=== PATIENT | male | born 1995 | race Caucasian/White ===

== ENCOUNTER 2017-11-27 05:48 | Emergency (ER) | payer BC ==
[2017-11-27] MEDS: ONDANSETRON 4 MG INJ IV (06:29)
[2017-11-27] MEDS: SOD CHLORIDE 0.9% 1,000 ML IV (06:29)
[2017-11-27 06:43] LABS: ADD MAN DIFF? NO
[2017-11-27 06:45] LABS: BASOPHIL # 0.1 10^3/ul (0.0-0.1); BASOPHILS % 0.5 % (0.0-2.0); EOSINOPHILS # 0.2 10^3/ul (0.0-0.5); EOSINOPHILS % 1.3 % (0.0-7.0); HEMATOCRIT 45.6 % (42.0-52.0); HEMOGLOBIN 16.3 g/dl (14.0-18.0); LYMPHOCYTES # 3.2 10^3/ul (0.8-2.9); LYMPHOCYTES % 26.6 % (15.0-51.0); MEAN CORPUSCULAR HEMOGLOBIN 29.9 pg (29.0-33.0); MEAN CORPUSCULAR HGB CONC 35.7 g/dl (32.0-37.0); MEAN CORPUSCULAR VOLUME 83.7 fl (82.0-101.0); MEAN PLATELET VOLUME 10.5 fl (7.4-10.4); MONOCYTE # 0.8 10^3/ul (0.3-0.9); MONOCYTES % 6.6 % (0.0-11.0); NEUTROPHIL # 7.6 10^3/ul (1.6-7.5); NEUTROPHILS % 62.5 % (39.0-77.0); PLATELET COUNT 289 10^3/UL (140-415); RED BLOOD COUNT 5.45 10^6/ul (4.70-6.10); RED CELL DISTRIBUTION WIDTH 11.9 % (11.5-14.5)
[2017-11-27 06:45] LABS: WHITE BLOOD COUNT 12.2 10^3/ul (4.8-10.8)
[2017-11-27 07:05] LABS: ALANINE AMINOTRANSFERASE 38 IU/L (13-69); ALBUMIN 4.1 g/dl (3.3-4.9); ALBUMIN/GLOBULIN RATIO 1.36; ALKALINE PHOSPHATASE 165 IU/L (42-121); ANION GAP 15 (8-16); ASPARTATE AMINO TRANSFERASE 23 IU/L (15-46); BILIRUBIN,INDIRECT 0.5 mg/dl (0-1.1); BILIRUBIN,TOTAL 0.5 mg/dl (0.2-1.3); BLOOD UREA NITROGEN 15 mg/dl (7-20); CALCIUM 9.4 mg/dl (8.4-10.2); CARBON DIOXIDE 27 mmol/L (21-31); CHLORIDE 101 mmol/L (97-110); CREATININE 0.66 mg/dl (0.61-1.24); GLUCOSE 318 mg/dl (70-220); LIPASE 52 U/L (23-300); POTASSIUM 3.7 mmol/L (3.5-5.1); SODIUM 139 mmol/L (135-144); TOTAL PROTEIN 7.1 g/dl (6.1-8.1)
[2017-11-27 07:10] LABS: ADD UMIC NO; UR ASCORBIC ACID NEGATIVE (NEGATIVE); UR BILIRUBIN (Dip) NEGATIVE (NEGATIVE); UR BLOOD (Dip) NEGATIVE (NEGATIVE); UR CLARITY CLEAR (CLEAR); UR COLOR YELLOW (YELLOW); UR GLUCOSE (Dip) 3+ mg/dL (NEGATIVE); UR KETONES (Dip) 1+ mg/dL (NEGATIVE); UR LEUKOCYTE ESTERASE (Dip) NEGATIVE Leu/ul (NEGATIVE); UR NITRITE (Dip) NEGATIVE (NEGATIVE); UR SPECIFIC GRAVITY (Dip) 1.027 (1.003-1.030); UR TOTAL PROTEIN (Dip) NEGATIVE (NEGATIVE); UR UROBILINOGEN (Dip) NEGATIVE (NEGATIVE)
== END 2017-11-27 08:14 | disposition home or self-care (01) ==
LOC: FTE 05:48
DX: J02.9 Acute pharyngitis, unspecified (principal); R09.89 Other specified symptoms and signs involving the circulatory and respiratory systems; R19.7 Diarrhea, unspecified; R11.0 Nausea; E11.9 Type 2 diabetes mellitus without complications
CPT/HCPCS: 36415; 71045; 80053; 81003; 82962; 83690; 85025; 87400; 87880; 96374; 99284-25

== ENCOUNTER 2018-01-23 23:12 | Inpatient (IN) | payer BC ==
[2018-01-24] MEDS: LIDOCAINE/MYLANTA 40 ML BTL PO (01:33)
[2018-01-24] MEDS: morphine 4 MG/ML VIAL IV (01:33)
[2018-01-24] MEDS: ONDANSETRON 4 MG INJ IV (01:33)
[2018-01-24] MEDS: BELLADONNA/PHENOBARBITAL TAB PO (01:33)
[2018-01-24] MEDS: SOD CHLORIDE 0.9% 1,000 ML IV (01:34)
[2018-01-24 01:45] LABS: ADD MAN DIFF? NO
[2018-01-24 01:47] LABS: WHITE BLOOD COUNT 13.7 10^3/ul (4.8-10.8)
[2018-01-24 01:47] LABS: BASOPHIL # 0.1 10^3/ul (0.0-0.1); BASOPHILS % 0.7 % (0.0-2.0); EOSINOPHILS # 0.1 10^3/ul (0.0-0.5); EOSINOPHILS % 0.6 % (0.0-7.0); HEMATOCRIT 48.4 % (42.0-52.0); HEMOGLOBIN 16.4 g/dl (14.0-18.0); LYMPHOCYTES # 2.3 10^3/ul (0.8-2.9); LYMPHOCYTES % 16.7 % (15.0-51.0); MEAN CORPUSCULAR HEMOGLOBIN 29.4 pg (29.0-33.0); MEAN CORPUSCULAR HGB CONC 33.9 g/dl (32.0-37.0); MEAN CORPUSCULAR VOLUME 86.9 fl (82.0-101.0); MEAN PLATELET VOLUME 11.3 fl (7.4-10.4); MONOCYTE # 0.8 10^3/ul (0.3-0.9); MONOCYTES % 5.7 % (0.0-11.0); NEUTROPHIL # 10.2 10^3/ul (1.6-7.5); NEUTROPHILS % 74.3 % (39.0-77.0); PLATELET COUNT 292 10^3/UL (140-415); RED BLOOD COUNT 5.57 10^6/ul (4.70-6.10); RED CELL DISTRIBUTION WIDTH 12.1 % (11.5-14.5)
[2018-01-24 01:54] LABS: ADD UMIC NO; UR ASCORBIC ACID NEGATIVE (NEGATIVE); UR BILIRUBIN (Dip) NEGATIVE (NEGATIVE); UR BLOOD (Dip) NEGATIVE (NEGATIVE); UR CLARITY CLEAR (CLEAR); UR COLOR YELLOW (YELLOW); UR GLUCOSE (Dip) 3+ mg/dL (NEGATIVE); UR KETONES (Dip) 1+ mg/dL (NEGATIVE); UR LEUKOCYTE ESTERASE (Dip) NEGATIVE Leu/ul (NEGATIVE); UR NITRITE (Dip) NEGATIVE (NEGATIVE); UR TOTAL PROTEIN (Dip) NEGATIVE (NEGATIVE); UR UROBILINOGEN (Dip) NEGATIVE (NEGATIVE)
[2018-01-24 02:06] LABS: ALANINE AMINOTRANSFERASE 38 IU/L (13-69); ALBUMIN 4.6 g/dl (3.3-4.9); ALKALINE PHOSPHATASE 156 IU/L (42-121); ANION GAP 23 (8-16); ASPARTATE AMINO TRANSFERASE 23 IU/L (15-46); BILIRUBIN,INDIRECT 0.7 mg/dl (0-1.1); BILIRUBIN,TOTAL 0.7 mg/dl (0.2-1.3); BLOOD UREA NITROGEN 12 mg/dl (7-20); CALCIUM 9.4 mg/dl (8.4-10.2); CARBON DIOXIDE 22 mmol/L (21-31); CHLORIDE 98 mmol/L (97-110); CREATININE 0.69 mg/dl (0.61-1.24); GLUCOSE 349 mg/dl (70-220); LIPASE 59 U/L (23-300); POTASSIUM 3.7 mmol/L (3.5-5.1); SODIUM 139 mmol/L (135-144); TOTAL PROTEIN 7.3 g/dl (6.1-8.1)
[2018-01-24] MEDS: INSULIN LISPRO 100 UNIT/ML VIAL SC (02:44)
[2018-01-24] MEDS: DIATR MEGLU/DIATRIZOATE SODIUM 30 ML SOLUTION PO (04:37)
[2018-01-24] MEDS: BARIUM SULFATE 135 ML (E-Z HD) PO (09:30)
[2018-01-24] MEDS ORDERED: ONDANSETRON 4 MG INJ IV (09:30)
[2018-01-24] MEDS ORDERED: GLUCOSE GEL 15 GRAM TUBE BUCCAL (10:00)
[2018-01-24] MEDS ORDERED: DEXTROSE 50% 50 ML SYRINGE IV ×2 (10:00)
[2018-01-24] MEDS ORDERED: GLUCOSE GEL 15 GRAM TUBE PO ×2 (10:00)
[2018-01-24] MEDS ORDERED: GLUCAGON 1 MG INJ IM (10:00)
[2018-01-24] MEDS ORDERED: INSULIN ASPART [NOVOLOG] 3 ML PEN SC ×2 (12:00→13:00)
[2018-01-24] MEDS: Insulin NOVOLOG SS MILD Algorithm (NPO/TPN/ENTERAL FEEDS) SC ×3 (12:00→21:10)
[2018-01-24] MEDS: 1/2 NS + KCL 20 MEQ 1,000 ML IV ×3 (12:19→23:03)
[2018-01-24] MEDS: PANTOPRAZOLE 40 MG INJ IV (12:27)
[2018-01-24] MEDS: morphine 2 MG INJ IV (12:56)
[2018-01-24] MEDS: METHYLPREDNISOLONE 40 MG INJ IV (13:12)
[2018-01-24] MEDS: URSODIOL 300 MG CAP PO ×2 (13:14→21:00)
[2018-01-24] MEDS: MYCOPHENOLATE 250 MG CAP PO (21:00)
[2018-01-24] MEDS: TACROLIMUS 0.5 MG CAP PO (21:00)
[2018-01-25] MEDS: Insulin NOVOLOG SS MILD Algorithm (NPO/TPN/ENTERAL FEEDS) SC ×4 (01:00→12:42)
[2018-01-25] MEDS: PANTOPRAZOLE 40 MG INJ IV (05:08)
[2018-01-25] MEDS: 1/2 NS + KCL 20 MEQ 1,000 ML IV ×3 (05:30→21:47)
[2018-01-25 05:38] LABS: ADD MAN DIFF? NO
[2018-01-25 06:05] LABS: WHITE BLOOD COUNT 11.4 10^3/ul (4.8-10.8)
[2018-01-25 06:05] LABS: BASOPHILS % 0.3 % (0.0-2.0); EOSINOPHILS # 0.1 10^3/ul (0.0-0.5); EOSINOPHILS % 0.7 % (0.0-7.0); HEMATOCRIT 41.9 % (42.0-52.0); HEMOGLOBIN 14.4 g/dl (14.0-18.0); LYMPHOCYTES # 3.1 10^3/ul (0.8-2.9); LYMPHOCYTES % 27.4 % (15.0-51.0); MEAN CORPUSCULAR HEMOGLOBIN 29.8 pg (29.0-33.0); MEAN CORPUSCULAR HGB CONC 34.4 g/dl (32.0-37.0); MEAN CORPUSCULAR VOLUME 86.7 fl (82.0-101.0); MEAN PLATELET VOLUME 10.9 fl (7.4-10.4); MONOCYTE # 0.8 10^3/ul (0.3-0.9); MONOCYTES % 7.1 % (0.0-11.0); NEUTROPHIL # 7.2 10^3/ul (1.6-7.5); NEUTROPHILS % 62.9 % (39.0-77.0); PLATELET COUNT 245 10^3/UL (140-415); RED BLOOD COUNT 4.83 10^6/ul (4.70-6.10); RED CELL DISTRIBUTION WIDTH 12.3 % (11.5-14.5)
[2018-01-25 06:23] LABS: ANION GAP 15 (8-16); BLOOD UREA NITROGEN 9 mg/dl (7-20); CALCIUM 8.8 mg/dl (8.4-10.2); CARBON DIOXIDE 25 mmol/L (21-31); CHLORIDE 107 mmol/L (97-110); CREATININE 0.59 mg/dl (0.61-1.24); GLUCOSE 126 mg/dl (70-220); SODIUM 143 mmol/L (135-144)
[2018-01-25 07:12] LABS: HEMOGLOBIN A1C 10.3 % (0-5.9)
[2018-01-25] MEDS ORDERED: predniSONE 2.5 MG TAB PO (09:00)
[2018-01-25] MEDS: URSODIOL 300 MG CAP PO ×3 (09:00→20:24)
[2018-01-25] MEDS: METHYLPREDNISOLONE 40 MG INJ IV (09:00)
[2018-01-25] MEDS: TACROLIMUS 0.5 MG CAP PO ×2 (12:42→20:24)
[2018-01-25] MEDS: MYCOPHENOLATE 250 MG CAP PO ×2 (12:44→20:25)
[2018-01-25] MEDS ORDERED: morphine LIQ (10 MG/5 ML) CUP PO (16:00)
[2018-01-25] MEDS: INSULIN ASPART [NOVOLOG] 3 ML PEN SC ×2 (17:51→21:43)
[2018-01-25] MEDS: INSULIN GLARGINE [LANtus] 3 ML PEN SC (21:46)
[2018-01-26] MEDS: 1/2 NS + KCL 20 MEQ 1,000 ML IV ×2 (01:30→09:00)
[2018-01-26 05:22] LABS: ADD MAN DIFF? NO
[2018-01-26] MEDS: PANTOPRAZOLE 40 MG INJ IV (05:26)
[2018-01-26 05:29] LABS: BASOPHIL # 0.1 10^3/ul (0.0-0.1); BASOPHILS % 0.6 % (0.0-2.0); EOSINOPHILS # 0.1 10^3/ul (0.0-0.5); EOSINOPHILS % 1.2 % (0.0-7.0); HEMATOCRIT 43.3 % (42.0-52.0); HEMOGLOBIN 14.4 g/dl (14.0-18.0); LYMPHOCYTES # 3.3 10^3/ul (0.8-2.9); LYMPHOCYTES % 35.6 % (15.0-51.0); MEAN CORPUSCULAR HEMOGLOBIN 29.3 pg (29.0-33.0); MEAN CORPUSCULAR HGB CONC 33.3 g/dl (32.0-37.0); MEAN PLATELET VOLUME 10.7 fl (7.4-10.4); MONOCYTE # 0.7 10^3/ul (0.3-0.9); MONOCYTES % 7.8 % (0.0-11.0); NEUTROPHIL # 4.9 10^3/ul (1.6-7.5); NEUTROPHILS % 52.7 % (39.0-77.0); PLATELET COUNT 245 10^3/UL (140-415); RED BLOOD COUNT 4.92 10^6/ul (4.70-6.10); RED CELL DISTRIBUTION WIDTH 12.1 % (11.5-14.5)
[2018-01-26 05:29] LABS: WHITE BLOOD COUNT 9.3 10^3/ul (4.8-10.8)
[2018-01-26 05:48] LABS: ANION GAP 16 (8-16); BLOOD UREA NITROGEN 10 mg/dl (7-20); CARBON DIOXIDE 25 mmol/L (21-31); CHLORIDE 104 mmol/L (97-110); GLUCOSE 199 mg/dl (70-220); POTASSIUM 4.2 mmol/L (3.5-5.1); SODIUM 141 mmol/L (135-144)
[2018-01-26] MEDS: TACROLIMUS 0.5 MG CAP PO ×2 (09:01→20:39)
[2018-01-26] MEDS: MYCOPHENOLATE 250 MG CAP PO ×2 (09:01→20:39)
[2018-01-26] MEDS: METHYLPREDNISOLONE 40 MG INJ IV (09:01)
[2018-01-26] MEDS: URSODIOL 300 MG CAP PO ×3 (09:01→20:40)
[2018-01-26] MEDS: INSULIN ASPART [NOVOLOG] 3 ML PEN SC ×6 (09:10→20:50)
[2018-01-26 13:34] LABS: GLUCOSE 562 mg/dl (70-220)
[2018-01-26] MEDS ORDERED: INSULIN GLARGINE [LANtus] 3 ML PEN SC ×2 (20:00→21:00)
[2018-01-26] MEDS: INSULIN GLARGINE [LANtus] 3 ML PEN SC (20:49)
[2018-01-27] MEDS: ACCU-CHEK XX (02:35)
[2018-01-27 05:38] LABS: ANION GAP 17 (8-16); BLOOD UREA NITROGEN 14 mg/dl (7-20); CALCIUM 9.5 mg/dl (8.4-10.2); CARBON DIOXIDE 23 mmol/L (21-31); CHLORIDE 104 mmol/L (97-110); CREATININE 0.63 mg/dl (0.61-1.24); GLUCOSE 252 mg/dl (70-220); POTASSIUM 3.9 mmol/L (3.5-5.1); SODIUM 140 mmol/L (135-144)
[2018-01-27] MEDS: PANTOPRAZOLE 40 MG INJ IV (05:54)
[2018-01-27] MEDS: predniSONE 2.5 MG TAB PO (08:32)
[2018-01-27] MEDS: URSODIOL 300 MG CAP PO ×3 (08:33→21:24)
[2018-01-27] MEDS: TACROLIMUS 0.5 MG CAP PO ×2 (08:33→21:24)
[2018-01-27] MEDS: MYCOPHENOLATE 250 MG CAP PO ×2 (08:34→21:27)
[2018-01-27] MEDS: INSULIN ASPART [NOVOLOG] 3 ML PEN SC ×7 (08:36→21:00)
[2018-01-27] MEDS ORDERED: INSULIN GLARGINE [LANtus] 3 ML PEN SC (21:00)
[2018-01-27] MEDS: INSULIN GLARGINE [LANtus] 3 ML PEN SC (21:34)
[2018-01-28] MEDS: ACCU-CHEK XX (02:00)
[2018-01-28] MEDS: PANTOPRAZOLE 40 MG INJ IV (05:37)
[2018-01-28 05:39] LABS: ADD MAN DIFF? NO
[2018-01-28 05:47] LABS: BASOPHIL # 0.1 10^3/ul (0.0-0.1); BASOPHILS % 0.7 % (0.0-2.0); EOSINOPHILS # 0.1 10^3/ul (0.0-0.5); EOSINOPHILS % 1.2 % (0.0-7.0); HEMATOCRIT 47.3 % (42.0-52.0); HEMOGLOBIN 16.2 g/dl (14.0-18.0); LYMPHOCYTES # 3.9 10^3/ul (0.8-2.9); LYMPHOCYTES % 32.6 % (15.0-51.0); MEAN CORPUSCULAR HEMOGLOBIN 29.7 pg (29.0-33.0); MEAN CORPUSCULAR HGB CONC 34.2 g/dl (32.0-37.0); MEAN CORPUSCULAR VOLUME 86.6 fl (82.0-101.0); MEAN PLATELET VOLUME 10.7 fl (7.4-10.4); MONOCYTE # 0.9 10^3/ul (0.3-0.9); MONOCYTES % 7.3 % (0.0-11.0); NEUTROPHIL # 6.7 10^3/ul (1.6-7.5); NEUTROPHILS % 56.3 % (39.0-77.0); PLATELET COUNT 261 10^3/UL (140-415); RED BLOOD COUNT 5.46 10^6/ul (4.70-6.10); RED CELL DISTRIBUTION WIDTH 12.2 % (11.5-14.5)
[2018-01-28 06:21] LABS: ANION GAP 16 (8-16); BLOOD UREA NITROGEN 15 mg/dl (7-20); CALCIUM 9.6 mg/dl (8.4-10.2); CARBON DIOXIDE 25 mmol/L (21-31); CHLORIDE 105 mmol/L (97-110); CREATININE 0.69 mg/dl (0.61-1.24); GLUCOSE 160 mg/dl (70-220); POTASSIUM 3.9 mmol/L (3.5-5.1); SODIUM 142 mmol/L (135-144)
[2018-01-28] MEDS: URSODIOL 300 MG CAP PO ×3 (09:27→21:13)
[2018-01-28] MEDS: MYCOPHENOLATE 250 MG CAP PO ×2 (09:29→21:17)
[2018-01-28] MEDS: TACROLIMUS 0.5 MG CAP PO ×2 (09:30→21:13)
[2018-01-28] MEDS: predniSONE 2.5 MG TAB PO (09:31)
[2018-01-28] MEDS: NPH, HUMAN INSULIN ISOPHANE 3ML VIAL SC (09:35)
[2018-01-28] MEDS: INSULIN ASPART [NOVOLOG] 3 ML PEN SC ×7 (09:37→21:00)
[2018-01-28] MEDS: INSULIN GLARGINE [LANtus] 3 ML PEN SC (21:21)
[2018-01-29] MEDS: ACCU-CHEK XX (02:00)
[2018-01-29] MEDS: PANTOPRAZOLE 40 MG INJ IV (05:27)
[2018-01-29] MEDS: INSULIN ASPART [NOVOLOG] 3 ML PEN SC ×4 (07:50→12:15)
[2018-01-29] MEDS: URSODIOL 300 MG CAP PO ×2 (08:09→12:08)
[2018-01-29] MEDS: TACROLIMUS 0.5 MG CAP PO (08:11)
[2018-01-29] MEDS: MYCOPHENOLATE 250 MG CAP PO (08:11)
[2018-01-29] MEDS: predniSONE 2.5 MG TAB PO (10:02)
[2018-01-29] MEDS: NPH, HUMAN INSULIN ISOPHANE 3ML VIAL SC (10:58)
[2018-01-29 12:26] LABS: ADD MAN DIFF? NO
[2018-01-29 12:42] LABS: BASOPHILS % 0.4 % (0.0-2.0); EOSINOPHILS # 0.1 10^3/ul (0.0-0.5); EOSINOPHILS % 1.1 % (0.0-7.0); HEMATOCRIT 48.5 % (42.0-52.0); HEMOGLOBIN 16.2 g/dl (14.0-18.0); LYMPHOCYTES # 3.8 10^3/ul (0.8-2.9); LYMPHOCYTES % 35.9 % (15.0-51.0); MEAN CORPUSCULAR HEMOGLOBIN 29.4 pg (29.0-33.0); MEAN CORPUSCULAR HGB CONC 33.4 g/dl (32.0-37.0); MONOCYTE # 0.8 10^3/ul (0.3-0.9); MONOCYTES % 7.3 % (0.0-11.0); NEUTROPHIL # 5.5 10^3/ul (1.6-7.5); NEUTROPHILS % 52.9 % (39.0-77.0); PLATELET COUNT 280 10^3/UL (140-415); RED BLOOD COUNT 5.51 10^6/ul (4.70-6.10); RED CELL DISTRIBUTION WIDTH 12.3 % (11.5-14.5)
[2018-01-29 12:42] LABS: WHITE BLOOD COUNT 10.4 10^3/ul (4.8-10.8)
[2018-01-29 12:48] LABS: ANION GAP 19 (8-16); BLOOD UREA NITROGEN 14 mg/dl (7-20); CALCIUM 9.6 mg/dl (8.4-10.2); CARBON DIOXIDE 27 mmol/L (21-31); CHLORIDE 98 mmol/L (97-110); CREATININE 0.75 mg/dl (0.61-1.24); GLUCOSE 224 mg/dl (70-220); POTASSIUM 4.1 mmol/L (3.5-5.1); SODIUM 140 mmol/L (135-144)
[2018-01-30] MEDS ORDERED: NPH, HUMAN INSULIN ISOPHANE 3ML VIAL SC (09:00)
[2018-02-02 00:36] LABS: GAD 65 ANTIBODY <5 IU/mL (<5)
== END 2018-01-29 15:04 | disposition home or self-care (01) | DRG 389 ==
LOC: E/R 23:12 → MS1 01-24 07:41
PROVIDERS: Internal Medicine
DX: K56.609 Unspecified intestinal obstruction, unspecified as to partial versus complete obstruction (principal); Z94.4 Liver transplant status; Q60.2 Renal agenesis, unspecified; E11.9 Type 2 diabetes mellitus without complications; Z79.4 Long term (current) use of insulin; Z98.0 Intestinal bypass and anastomosis status; K52.9 Noninfective gastroenteritis and colitis, unspecified
CPT/HCPCS: 36415; 74018; 74176; 74240; 74250; 80048; 80053; 81003; 82947; 82962; 83036; 83690; 84681; 85025; 86341; 96372; 96374; 96375; 99285-25

== ENCOUNTER 2018-06-19 09:14 | Emergency (ER) | payer BC ==
[2018-06-19] MEDS: ONDANSETRON 4 MG INJ IV (09:51)
[2018-06-19] MEDS: KETOROLAC 30 MG INJ IV (09:51)
[2018-06-19] MEDS: SOD CHLORIDE 0.9% 1,000 ML IV (09:51)
== END 2018-06-19 11:32 | disposition home or self-care (01) ==
LOC: FTE 09:14
DX: R51 Headache (principal); E11.9 Type 2 diabetes mellitus without complications; Z79.4 Long term (current) use of insulin
CPT/HCPCS: 96361; 96374; 96375; 99284-25

== ENCOUNTER 2018-06-22 02:02 | Emergency (ER) | payer BC ==
[2018-06-22] MEDS: SOD CHLORIDE 0.9% 1,000 ML IV (02:53)
[2018-06-22] MEDS: morphine 4 MG/ML VIAL IV (02:54)
[2018-06-22] MEDS: ONDANSETRON 4 MG INJ IV (02:54)
[2018-06-22] MEDS: KETOROLAC 15 MG INJ IV (02:54)
[2018-06-22 02:56] LABS: ADD MAN DIFF? NO
[2018-06-22 02:59] LABS: WHITE BLOOD COUNT 11.3 10^3/ul (4.8-10.8)
[2018-06-22 02:59] LABS: BASOPHILS % 0.4 % (0.0-2.0); EOSINOPHILS # 0.1 10^3/ul (0.0-0.5); EOSINOPHILS % 0.4 % (0.0-7.0); HEMATOCRIT 43.2 % (42.0-52.0); HEMOGLOBIN 15.1 g/dl (14.0-18.0); LYMPHOCYTES # 2.4 10^3/ul (0.8-2.9); MEAN CORPUSCULAR VOLUME 82.9 fl (82.0-101.0); MEAN PLATELET VOLUME 10.7 fl (7.4-10.4); MONOCYTE # 0.8 10^3/ul (0.3-0.9); MONOCYTES % 7.2 % (0.0-11.0); NEUTROPHIL # 7.7 10^3/ul (1.6-7.5); NEUTROPHILS % 68.8 % (39.0-77.0); PLATELET COUNT 247 10^3/UL (140-415); RED BLOOD COUNT 5.21 10^6/ul (4.70-6.10); RED CELL DISTRIBUTION WIDTH 11.9 % (11.5-14.5)
[2018-06-22 03:19] LABS: ADD UMIC NO; UR ASCORBIC ACID NEGATIVE (NEGATIVE); UR BILIRUBIN (Dip) NEGATIVE (NEGATIVE); UR BLOOD (Dip) NEGATIVE (NEGATIVE); UR CLARITY CLEAR (CLEAR); UR COLOR STRAW (YELLOW); UR GLUCOSE (Dip) 2+ mg/dL (NEGATIVE); UR KETONES (Dip) TRACE mg/dL (NEGATIVE); UR LEUKOCYTE ESTERASE (Dip) NEGATIVE Leu/ul (NEGATIVE); UR NITRITE (Dip) NEGATIVE (NEGATIVE); UR SPECIFIC GRAVITY (Dip) 1.008 (1.003-1.030); UR TOTAL PROTEIN (Dip) NEGATIVE (NEGATIVE); UR UROBILINOGEN (Dip) NEGATIVE (NEGATIVE)
[2018-06-22 03:21] LABS: ALANINE AMINOTRANSFERASE 94 IU/L (13-69); ALBUMIN 4.1 g/dl (3.3-4.9); ALBUMIN/GLOBULIN RATIO 1.32; ALKALINE PHOSPHATASE 184 IU/L (42-121); ANION GAP 18 (5-13); ASPARTATE AMINO TRANSFERASE 90 IU/L (15-46); BILIRUBIN,INDIRECT 0.7 mg/dl (0-1.1); BILIRUBIN,TOTAL 0.7 mg/dl (0.2-1.3); BLOOD UREA NITROGEN 14 mg/dl (7-20); CALCIUM 9.2 mg/dl (8.4-10.2); CARBON DIOXIDE 18 mmol/L (21-31); CHLORIDE 107 mmol/L (97-110); Estimated GFR > 60 mL/min (>60); GLUCOSE 152 mg/dl (70-220); LIPASE 136 U/L (23-300); POTASSIUM 3.5 mmol/L (3.5-5.1); SODIUM 143 mmol/L (135-144); TOTAL PROTEIN 7.2 g/dl (6.1-8.1)
== END 2018-06-22 05:20 | disposition home or self-care (01) ==
LOC: E/R 02:02
DX: M54.5 Low back pain (principal); D72.829 Elevated white blood cell count, unspecified; E87.2 Acidosis; E11.65 Type 2 diabetes mellitus with hyperglycemia; R74.0 Nonspecific elevation of levels of transaminase and lactic acid dehydrogenase [LDH]; Z79.4 Long term (current) use of insulin
CPT/HCPCS: 36415; 74176; 80053; 81003; 83690; 85025; 96374; 96375; 99285-25

== ENCOUNTER 2018-06-22 21:21 | Inpatient (IN) | payer BC ==
[2018-06-22] MEDS: IBUPROFEN 800 MG TAB PO (22:25)
[2018-06-22] MEDS: ACETAMINOPHEN 500 MG TAB PO (22:25)
[2018-06-22 22:40] LABS: ADD MAN DIFF? NO
[2018-06-22 22:42] LABS: BASOPHILS % 0.3 % (0.0-2.0); HEMATOCRIT 43.6 % (42.0-52.0); LYMPHOCYTES # 1.9 10^3/ul (0.8-2.9); LYMPHOCYTES % 15.9 % (15.0-51.0); MEAN CORPUSCULAR HEMOGLOBIN 29.1 pg (29.0-33.0); MEAN CORPUSCULAR HGB CONC 34.4 g/dl (32.0-37.0); MEAN CORPUSCULAR VOLUME 84.5 fl (82.0-101.0); MEAN PLATELET VOLUME 10.5 fl (7.4-10.4); MONOCYTE # 0.9 10^3/ul (0.3-0.9); MONOCYTES % 7.4 % (0.0-11.0); NEUTROPHIL # 8.8 10^3/ul (1.6-7.5); NEUTROPHILS % 74.5 % (39.0-77.0); PLATELET COUNT 234 10^3/UL (140-415); RED BLOOD COUNT 5.16 10^6/ul (4.70-6.10)
[2018-06-22 22:42] LABS: WHITE BLOOD COUNT 11.8 10^3/ul (4.8-10.8)
[2018-06-22 22:53] LABS: ADD UMIC NO; UR ASCORBIC ACID NEGATIVE (NEGATIVE); UR BILIRUBIN (Dip) NEGATIVE (NEGATIVE); UR BLOOD (Dip) NEGATIVE (NEGATIVE); UR CLARITY CLEAR (CLEAR); UR COLOR YELLOW (YELLOW); UR GLUCOSE (Dip) 3+ mg/dL (NEGATIVE); UR KETONES (Dip) 1+ mg/dL (NEGATIVE); UR LEUKOCYTE ESTERASE (Dip) NEGATIVE Leu/ul (NEGATIVE); UR NITRITE (Dip) NEGATIVE (NEGATIVE); UR SPECIFIC GRAVITY (Dip) 1.007 (1.003-1.030); UR TOTAL PROTEIN (Dip) NEGATIVE (NEGATIVE); UR UROBILINOGEN (Dip) NEGATIVE (NEGATIVE)
[2018-06-22 23:02] LABS: LACTIC ACID 1.7 mmol/L (0.5-2.0)
[2018-06-22 23:14] LABS: ALANINE AMINOTRANSFERASE 133 IU/L (13-69); ALBUMIN 3.8 g/dl (3.3-4.9); ALBUMIN/GLOBULIN RATIO 1.22; ALKALINE PHOSPHATASE 166 IU/L (42-121); AMYLASE 112 U/L (11-123); ANION GAP 15 (5-13); ASPARTATE AMINO TRANSFERASE 148 IU/L (15-46); BILIRUBIN,INDIRECT 1.1 mg/dl (0-1.1); BILIRUBIN,TOTAL 1.1 mg/dl (0.2-1.3); BLOOD UREA NITROGEN 14 mg/dl (7-20); CALCIUM 8.4 mg/dl (8.4-10.2); CARBON DIOXIDE 14 mmol/L (21-31); CHLORIDE 102 mmol/L (97-110); CREATININE 0.99 mg/dl (0.61-1.24); Estimated GFR > 60 mL/min (>60); GLUCOSE 260 mg/dl (70-220); LIPASE 24 U/L (23-300); SODIUM 131 mmol/L (135-144); TOTAL PROTEIN 6.9 g/dl (6.1-8.1)
[2018-06-22] MEDS ORDERED: POTASSIUM CHLORIDE 30 MEQ in SOD CHLORIDE 0.9% 1,000 ML IV (23:36)
[2018-06-22] MEDS ORDERED: SODIUM CHLORIDE 23.4% 77 MEQ in DEXTROSE 10% 1,000 ML IV (23:36)
[2018-06-22] MEDS ORDERED: SODIUM CHLORIDE 23.4% 77 MEQ, POTASSIUM CHLORIDE 30 MEQ in DEXTROSE 10% 1,000 ML IV (23:36)
[2018-06-22] MEDS ORDERED: SOD CHLORIDE 0.9% 1,000 ML IV (23:36)
[2018-06-22] MEDS ORDERED: SODIUM CHLORIDE 23.4% 77 MEQ, POTASSIUM CHLORIDE 40 MEQ in DEXTROSE 10% 1,000 ML IV (23:36)
[2018-06-22] MEDS ORDERED: POTASSIUM CHLORIDE 40 MEQ in SOD CHLORIDE 0.9% 1,000 ML IV (23:36)
[2018-06-22] MEDS: SOD CHLORIDE 0.9% 1,000 ML IV (23:44)
[2018-06-23] MEDS ORDERED: DEXTROSE 50% 50 ML SYRINGE IV ×2
[2018-06-23] MEDS ORDERED: INSULIN REGULAR, HUMAN 100 UNIT in SOD CHLORIDE 0.9% 99 ML IV
[2018-06-23 00:07] LABS: HEMOGLOBIN A1C 9.5 % (0-5.9)
[2018-06-23] MEDS: CEFTRIAXONE 1 GM/50 ML (PMX) 50 ML IVPB (00:27)
[2018-06-23] MEDS: LACTATED RINGER'S 860 ML IV (00:28)
[2018-06-23] MEDS ORDERED: ONDANSETRON 4 MG INJ IV (02:00)
[2018-06-23] MEDS ORDERED: ALBUTEROL/IPRATROPIUM (NEB) 3 ML AMP NEB (02:00)
[2018-06-23 02:07] LABS: MODE ROOM AIR; MetHgb Venous 0.4 %; Sample Type Blood venous; Site VENOUS LINE; Venous COHb 0.3 %; Venous Fraction OxyHgb 94.6 %; Venous Oxygen Sat 95.3 mmHG (55.0-75.0); Venous Total Hemglobin 14.3 g/dl
[2018-06-23 02:28] LABS: BLOOD UREA NITROGEN 15 mg/dl (7-20); CALCIUM 7.5 mg/dl (8.4-10.2); CARBON DIOXIDE 18 mmol/L (21-31); CHLORIDE 108 mmol/L (97-110); CREATININE 0.84 mg/dl (0.61-1.24); Estimated GFR > 60 mL/min (>60); GLUCOSE 236 mg/dl (70-220); PHOSPHORUS 4.2 mg/dl (2.5-4.9); POTASSIUM 3.8 mmol/L (3.5-5.1)
[2018-06-23 02:35] LABS: ANION GAP 10 (5-13); SODIUM 136 mmol/L (135-144)
[2018-06-23] MEDS: LEVOFLOXACIN 500MG/D5W (PMX) 100 ML IVPB (06:01)
[2018-06-23 06:58] LABS: ADD MAN DIFF? NO
[2018-06-23 07:05] LABS: BASOPHILS % 0.4 % (0.0-2.0); EOSINOPHILS % 0.1 % (0.0-7.0); HEMATOCRIT 41.7 % (42.0-52.0); HEMOGLOBIN 14.1 g/dl (14.0-18.0); LYMPHOCYTES # 1.9 10^3/ul (0.8-2.9); LYMPHOCYTES % 20.2 % (15.0-51.0); MEAN CORPUSCULAR HGB CONC 33.8 g/dl (32.0-37.0); MEAN CORPUSCULAR VOLUME 85.8 fl (82.0-101.0); MEAN PLATELET VOLUME 10.7 fl (7.4-10.4); MONOCYTE # 0.8 10^3/ul (0.3-0.9); MONOCYTES % 8.7 % (0.0-11.0); NEUTROPHIL # 6.6 10^3/ul (1.6-7.5); NEUTROPHILS % 68.7 % (39.0-77.0); PLATELET COUNT 193 10^3/UL (140-415); RED BLOOD COUNT 4.86 10^6/ul (4.70-6.10); RED CELL DISTRIBUTION WIDTH 12.3 % (11.5-14.5)
[2018-06-23 07:05] LABS: WHITE BLOOD COUNT 9.6 10^3/ul (4.8-10.8)
[2018-06-23 07:47] LABS: ALANINE AMINOTRANSFERASE 123 IU/L (13-69); ALBUMIN 3.3 g/dl (3.3-4.9); ALBUMIN/GLOBULIN RATIO 1.13; ALKALINE PHOSPHATASE 137 IU/L (42-121); ANION GAP 12 (5-13); ASPARTATE AMINO TRANSFERASE 116 IU/L (15-46); BILIRUBIN,INDIRECT 0.8 mg/dl (0-1.1); BILIRUBIN,TOTAL 0.8 mg/dl (0.2-1.3); BLOOD UREA NITROGEN 15 mg/dl (7-20); CARBON DIOXIDE 20 mmol/L (21-31); CHLORIDE 110 mmol/L (97-110); CREATININE 0.72 mg/dl (0.61-1.24); Estimated GFR > 60 mL/min (>60); GLUCOSE 213 mg/dl (70-220); POTASSIUM 4.1 mmol/L (3.5-5.1); SODIUM 142 mmol/L (135-144); TOTAL PROTEIN 6.2 g/dl (6.1-8.1)
[2018-06-23] MEDS ORDERED: HEPARIN 5,000 UNIT/0.5 ML VIAL ×2 (08:21→20:45)
[2018-06-23] MEDS: oxyCODONE 5 MG TAB PO ×3 (08:27→21:01)
[2018-06-23] MEDS: INSULIN ASPART [NOVOLOG] 3 ML PEN SC ×7 (08:33→21:00)
[2018-06-23] MEDS: INSULIN GLARGINE [LANTus] (100 UNITS/ML) SYG SC ×2 (08:34→16:14)
[2018-06-23] MEDS: HEPARIN 5,000 UNIT/1 ML VIAL SC ×2 (08:35→20:59)
[2018-06-23] MEDS: MAGNESIUM SULFATE 4 GM/100 ML 100 ML IVPB (09:18)
[2018-06-23] MEDS: morphine 2 MG INJ IV ×4 (09:18→23:56)
[2018-06-23] MEDS ORDERED: MAGNESIUM SULFATE 2 GM/50 ML 50 ML IVPB (12:30)
[2018-06-23] MEDS: CEPASTAT LOZENGE MT ×2 (12:35→19:21)
[2018-06-23] MEDS: PANTOPRAZOLE (EC) 40 MG TAB PO (13:07)
[2018-06-23] MEDS: ACETAMINOPHEN 325 MG TAB PO (13:27)
[2018-06-23 14:46] LABS: ADD UMIC YES; UR ASCORBIC ACID NEGATIVE (NEGATIVE); UR BILIRUBIN (Dip) NEGATIVE (NEGATIVE); UR BLOOD (Dip) 1+ mg/dL (NEGATIVE); UR CLARITY CLEAR (CLEAR); UR COLOR STRAW (YELLOW); UR GLUCOSE (Dip) 2+ mg/dL (NEGATIVE); UR KETONES (Dip) 1+ mg/dL (NEGATIVE); UR LEUKOCYTE ESTERASE (Dip) NEGATIVE Leu/ul (NEGATIVE); UR NITRITE (Dip) NEGATIVE (NEGATIVE); UR RBC 0 /HPF (0-5); UR SPECIFIC GRAVITY (Dip) 1.009 (1.003-1.030); UR TOTAL PROTEIN (Dip) NEGATIVE (NEGATIVE); UR UROBILINOGEN (Dip) NEGATIVE (NEGATIVE); UR WBC 0 /HPF (0-5)
[2018-06-23] MEDS: LINAGLIPTIN 5 MG TABLET PO (16:10)
[2018-06-23] MEDS: HYDROCORTISONE 100 MG INJ IV ×2 (16:14→21:11)
[2018-06-24] MEDS: ACCU-CHEK XX (02:00)
[2018-06-24] MEDS: CEPASTAT LOZENGE MT ×4 (02:44→19:51)
[2018-06-24] MEDS: oxyCODONE 5 MG TAB PO ×2 (04:10→22:58)
[2018-06-24] MEDS: SOD CHLORIDE 0.9% IVPB ×3 (06:02→21:19)
[2018-06-24] MEDS: ACYCLOVIR IVPB ×3 (06:02→21:19)
[2018-06-24] MEDS: PANTOPRAZOLE (EC) 40 MG TAB PO (06:02)
[2018-06-24] MEDS: HYDROCORTISONE 100 MG INJ IV ×2 (06:14→15:11)
[2018-06-24] MEDS: morphine 2 MG INJ IV ×3 (06:22→19:51)
[2018-06-24 07:05] LABS: LACTIC ACID 1.1 mmol/L (0.5-2.0)
[2018-06-24 07:17] LABS: ANION GAP 13 (5-13); BLOOD UREA NITROGEN 17 mg/dl (7-20); CALCIUM 8.6 mg/dl (8.4-10.2); CARBON DIOXIDE 22 mmol/L (21-31); CHLORIDE 101 mmol/L (97-110); CREATININE 0.71 mg/dl (0.61-1.24); Estimated GFR > 60 mL/min (>60); GLUCOSE 187 mg/dl (70-220); MAGNESIUM 1.5 mg/dl (1.7-2.5); POTASSIUM 3.9 mmol/L (3.5-5.1); SODIUM 136 mmol/L (135-144)
[2018-06-24] MEDS ORDERED: SOD CHLORIDE 0.9% IVPB ×2 (07:30→21:00)
[2018-06-24] MEDS ORDERED: ACYCLOVIR IVPB ×2 (07:30→21:00)
[2018-06-24] MEDS ORDERED: HEPARIN 5,000 UNIT/0.5 ML VIAL ×2 (07:48→20:13)
[2018-06-24] MEDS: INSULIN ASPART [NOVOLOG] 3 ML PEN SC ×7 (08:14→21:12)
[2018-06-24] MEDS: LEVOFLOXACIN 500MG/D5W (PMX) 100 ML IVPB (08:16)
[2018-06-24] MEDS: INSULIN GLARGINE [LANTus] (100 UNITS/ML) SYG SC (08:16)
[2018-06-24] MEDS: HEPARIN 5,000 UNIT/1 ML VIAL SC ×2 (08:17→21:12)
[2018-06-24 08:19] LABS: ADD MAN DIFF? NO
[2018-06-24 08:27] LABS: WHITE BLOOD COUNT 8.7 10^3/ul (4.8-10.8)
[2018-06-24 08:27] LABS: BASOPHILS % 0.3 % (0.0-2.0); EOSINOPHILS % 0.1 % (0.0-7.0); HEMATOCRIT 42.5 % (42.0-52.0); HEMOGLOBIN 14.3 g/dl (14.0-18.0); LYMPHOCYTES # 1.4 10^3/ul (0.8-2.9); MEAN CORPUSCULAR HEMOGLOBIN 28.8 pg (29.0-33.0); MEAN CORPUSCULAR HGB CONC 33.6 g/dl (32.0-37.0); MEAN CORPUSCULAR VOLUME 85.7 fl (82.0-101.0); MONOCYTE # 0.6 10^3/ul (0.3-0.9); MONOCYTES % 7.1 % (0.0-11.0); NEUTROPHIL # 6.5 10^3/ul (1.6-7.5); NEUTROPHILS % 74.6 % (39.0-77.0); PLATELET COUNT 212 10^3/UL (140-415); RED BLOOD COUNT 4.96 10^6/ul (4.70-6.10)
[2018-06-24] MEDS: hydrOXYzine HCL 25 MG TAB PO ×2 (11:05→21:15)
[2018-06-24] MEDS: GABAPENTIN 100 MG CAP PO ×2 (11:05→21:14)
[2018-06-24] MEDS ORDERED: TACROLIMUS 1 MG CAP PO (11:30)
[2018-06-24] MEDS: URSODIOL 300 MG CAP PO ×2 (11:51→21:14)
[2018-06-24] MEDS: MYCOPHENOLATE MOFETIL 500 MG TABLET PO ×2 (11:51→21:18)
[2018-06-24] MEDS: TACROLIMUS 1 MG CAP PO ×2 (11:57→21:14)
[2018-06-24] MEDS: CYCLOBENZAPRINE 10 MG TAB PO (12:54)
[2018-06-24] MEDS ORDERED: URSODIOL 300 MG CAP PO (13:00)
[2018-06-24] MEDS: MAGNESIUM SULFATE 3 GM in DEXTROSE 5% 100 ML IVPB (14:21)
[2018-06-24] MEDS: ACETAMINOPHEN 325 MG TAB PO (16:21)
[2018-06-24] MEDS ORDERED: [UNRECOGNIZED DRUG - REMARK] XX (17:00)
[2018-06-24 18:52] LABS: HIV 1&2 ANTIBODY NEGATIVE (NEGATIVE)
[2018-06-24] MEDS ORDERED: SPECIAL NON-STANDARD MEDICATION PO (21:00)
[2018-06-24] MEDS: MAGNESIUM PLUS PROTEIN PO (21:15)
[2018-06-25] MEDS: ACCU-CHEK XX (02:14)
[2018-06-25] MEDS: morphine 2 MG INJ IV ×3 (02:41→11:51)
[2018-06-25] MEDS: CEPASTAT LOZENGE MT (02:48)
[2018-06-25] MEDS: SOD CHLORIDE 0.9% 1,000 ML IV (04:24)
[2018-06-25] MEDS: INSULIN ASPART [NOVOLOG] 3 ML PEN SC ×8 (05:26→20:59)
[2018-06-25] MEDS: PANTOPRAZOLE (EC) 40 MG TAB PO (06:00)
[2018-06-25] MEDS: SOD CHLORIDE 0.9% IVPB ×3 (06:04→21:03)
[2018-06-25] MEDS: ACYCLOVIR IVPB ×3 (06:04→21:03)
[2018-06-25 06:29] LABS: ADD MAN DIFF? NO
[2018-06-25 06:41] LABS: WHITE BLOOD COUNT 7.5 10^3/ul (4.8-10.8)
[2018-06-25 06:41] LABS: BASOPHIL # 0.1 10^3/ul (0.0-0.1); BASOPHILS % 0.7 % (0.0-2.0); EOSINOPHILS % 0.5 % (0.0-7.0); HEMOGLOBIN 15.3 g/dl (14.0-18.0); LYMPHOCYTES # 1.6 10^3/ul (0.8-2.9); LYMPHOCYTES % 21.9 % (15.0-51.0); MEAN CORPUSCULAR HEMOGLOBIN 29.3 pg (29.0-33.0); MEAN CORPUSCULAR HGB CONC 34.8 g/dl (32.0-37.0); MEAN CORPUSCULAR VOLUME 84.1 fl (82.0-101.0); MEAN PLATELET VOLUME 10.3 fl (7.4-10.4); MONOCYTE # 0.4 10^3/ul (0.3-0.9); MONOCYTES % 5.6 % (0.0-11.0); NEUTROPHIL # 5.1 10^3/ul (1.6-7.5); PLATELET COUNT 221 10^3/UL (140-415); RED BLOOD COUNT 5.23 10^6/ul (4.70-6.10); RED CELL DISTRIBUTION WIDTH 11.9 % (11.5-14.5)
[2018-06-25 06:54] LABS: MAGNESIUM 1.8 mg/dl (1.7-2.5)
[2018-06-25 07:00] LABS: ANION GAP 12 (5-13); BLOOD UREA NITROGEN 17 mg/dl (7-20); CALCIUM 8.6 mg/dl (8.4-10.2); CARBON DIOXIDE 24 mmol/L (21-31); CHLORIDE 104 mmol/L (97-110); CREATININE 0.81 mg/dl (0.61-1.24); Estimated GFR > 60 mL/min (>60); GLUCOSE 180 mg/dl (70-220); POTASSIUM 3.7 mmol/L (3.5-5.1); SODIUM 140 mmol/L (135-144)
[2018-06-25] MEDS ORDERED: HEPARIN 5,000 UNIT/0.5 ML VIAL ×2 (09:32→20:39)
[2018-06-25] MEDS: URSODIOL 300 MG CAP PO ×2 (09:36→22:26)
[2018-06-25] MEDS: hydrOXYzine HCL 25 MG TAB PO ×3 (09:37→21:02)
[2018-06-25] MEDS: MYCOPHENOLATE MOFETIL 500 MG TABLET PO ×2 (09:37→21:02)
[2018-06-25] MEDS: GABAPENTIN 100 MG CAP PO ×3 (09:37→21:01)
[2018-06-25] MEDS: TACROLIMUS 1 MG CAP PO ×2 (09:37→21:02)
[2018-06-25] MEDS: HEPARIN 5,000 UNIT/1 ML VIAL SC ×2 (09:38→21:00)
[2018-06-25 09:39] LABS: ALANINE AMINOTRANSFERASE 155 IU/L (13-69); ALBUMIN 3.7 g/dl (3.3-4.9); ALKALINE PHOSPHATASE 131 IU/L (42-121); ASPARTATE AMINO TRANSFERASE 149 IU/L (15-46); BILIRUBIN,INDIRECT 0.3 mg/dl (0-1.1); BILIRUBIN,TOTAL 0.3 mg/dl (0.2-1.3); TOTAL PROTEIN 6.2 g/dl (6.1-8.1)
[2018-06-25] MEDS: INSULIN GLARGINE [LANTus] (100 UNITS/ML) SYG SC (09:39)
[2018-06-25] MEDS: POLYETHYLENE GLYCOL 17 GM PACKET PO (09:48)
[2018-06-25] MEDS: ACETAMINOPHEN 325 MG TAB PO ×2 (09:49→17:54)
[2018-06-25] MEDS: LUBIPROSTONE 24 MCG CAP PO ×2 (11:51→22:26)
[2018-06-25] MEDS: MAGNESIUM PLUS PROTEIN PO (21:06)
[2018-06-26] MEDS: ACETAMINOPHEN 325 MG TAB PO (01:28)
[2018-06-26] MEDS: ACCU-CHEK XX (01:29)
[2018-06-26] MEDS: morphine 2 MG INJ IV ×2 (03:19→18:13)
[2018-06-26] MEDS: ACYCLOVIR IVPB ×3 (05:27→21:59)
[2018-06-26] MEDS: PANTOPRAZOLE (EC) 40 MG TAB PO (05:27)
[2018-06-26] MEDS: SOD CHLORIDE 0.9% IVPB ×3 (05:27→21:59)
[2018-06-26] MEDS: oxyCODONE 5 MG TAB PO ×3 (05:27→22:17)
[2018-06-26 06:16] LABS: ADD MAN DIFF? NO
[2018-06-26 06:19] LABS: WHITE BLOOD COUNT 6.2 10^3/ul (4.8-10.8)
[2018-06-26 06:19] LABS: BASOPHILS % 0.5 % (0.0-2.0); EOSINOPHILS % 0.2 % (0.0-7.0); HEMATOCRIT 43.5 % (42.0-52.0); HEMOGLOBIN 15.2 g/dl (14.0-18.0); LYMPHOCYTES # 1.9 10^3/ul (0.8-2.9); LYMPHOCYTES % 30.6 % (15.0-51.0); MEAN CORPUSCULAR HEMOGLOBIN 29.2 pg (29.0-33.0); MEAN CORPUSCULAR HGB CONC 34.9 g/dl (32.0-37.0); MEAN CORPUSCULAR VOLUME 83.7 fl (82.0-101.0); MEAN PLATELET VOLUME 10.1 fl (7.4-10.4); MONOCYTE # 0.5 10^3/ul (0.3-0.9); MONOCYTES % 7.2 % (0.0-11.0); NEUTROPHIL # 3.6 10^3/ul (1.6-7.5); NEUTROPHILS % 57.5 % (39.0-77.0); PLATELET COUNT 204 10^3/UL (140-415)
[2018-06-26 07:07] LABS: GLUCOSE 179 mg/dl (70-220)
[2018-06-26 07:12] LABS: ANION GAP 13 (5-13); BLOOD UREA NITROGEN 10 mg/dl (7-20); CALCIUM 8.4 mg/dl (8.4-10.2); CARBON DIOXIDE 24 mmol/L (21-31); CHLORIDE 100 mmol/L (97-110); CREATININE 0.69 mg/dl (0.61-1.24); Estimated GFR > 60 mL/min (>60); POTASSIUM 3.7 mmol/L (3.5-5.1); SODIUM 137 mmol/L (135-144)
[2018-06-26] MEDS: INSULIN GLARGINE [LANTus] (100 UNITS/ML) SYG SC (08:09)
[2018-06-26] MEDS: BISACODYL (EC) 5 MG TAB PO (08:10)
[2018-06-26] MEDS: INSULIN ASPART [NOVOLOG] 3 ML PEN SC ×7 (08:10→20:59)
[2018-06-26] MEDS ORDERED: HEPARIN 5,000 UNIT/0.5 ML VIAL ×2 (08:17→19:52)
[2018-06-26] MEDS: POLYETHYLENE GLYCOL 17 GM PACKET PO (08:18)
[2018-06-26] MEDS: URSODIOL 300 MG CAP PO ×2 (08:19→20:53)
[2018-06-26] MEDS: hydrOXYzine HCL 25 MG TAB PO ×3 (08:19→20:53)
[2018-06-26] MEDS: GABAPENTIN 100 MG CAP PO ×3 (08:19→20:53)
[2018-06-26] MEDS: TACROLIMUS 1 MG CAP PO ×2 (08:19→20:53)
[2018-06-26] MEDS: MYCOPHENOLATE MOFETIL 500 MG TABLET PO ×2 (08:19→20:53)
[2018-06-26] MEDS: HEPARIN 5,000 UNIT/1 ML VIAL SC ×2 (08:21→20:59)
[2018-06-26] MEDS: LUBIPROSTONE 24 MCG CAP PO ×2 (10:05→20:53)
[2018-06-26] MEDS: CEPASTAT LOZENGE MT (10:14)
[2018-06-26] MEDS: MAGNESIUM PLUS PROTEIN PO (20:54)
[2018-06-27] MEDS: ACCU-CHEK XX (02:00)
[2018-06-27] MEDS: SOD CHLORIDE 0.9% IVPB ×3 (05:38→21:11)
[2018-06-27] MEDS: ACYCLOVIR IVPB ×3 (05:38→21:11)
[2018-06-27] MEDS: PANTOPRAZOLE (EC) 40 MG TAB PO (05:38)
[2018-06-27] MEDS: ACETAMINOPHEN 325 MG TAB PO (05:39)
[2018-06-27 06:47] LABS: ADD MAN DIFF? NO
[2018-06-27 06:53] LABS: BASOPHIL # 0.1 10^3/ul (0.0-0.1); BASOPHILS % 0.8 % (0.0-2.0); EOSINOPHILS # 0.1 10^3/ul (0.0-0.5); EOSINOPHILS % 1.5 % (0.0-7.0); HEMATOCRIT 41.4 % (42.0-52.0); HEMOGLOBIN 14.1 g/dl (14.0-18.0); LYMPHOCYTES # 1.9 10^3/ul (0.8-2.9); MEAN CORPUSCULAR HEMOGLOBIN 28.9 pg (29.0-33.0); MEAN CORPUSCULAR HGB CONC 34.1 g/dl (32.0-37.0); MEAN CORPUSCULAR VOLUME 84.8 fl (82.0-101.0); MEAN PLATELET VOLUME 10.1 fl (7.4-10.4); MONOCYTE # 0.6 10^3/ul (0.3-0.9); MONOCYTES % 7.9 % (0.0-11.0); NEUTROPHIL # 4.8 10^3/ul (1.6-7.5); NEUTROPHILS % 61.4 % (39.0-77.0); PLATELET COUNT 186 10^3/UL (140-415); RED BLOOD COUNT 4.88 10^6/ul (4.70-6.10); RED CELL DISTRIBUTION WIDTH 11.9 % (11.5-14.5)
[2018-06-27 06:53] LABS: WHITE BLOOD COUNT 7.8 10^3/ul (4.8-10.8)
[2018-06-27 07:08] LABS: ANION GAP 12 (5-13); BLOOD UREA NITROGEN 10 mg/dl (7-20); CALCIUM 8.5 mg/dl (8.4-10.2); CARBON DIOXIDE 28 mmol/L (21-31); CHLORIDE 96 mmol/L (97-110); CREATININE 0.68 mg/dl (0.61-1.24); Estimated GFR > 60 mL/min (>60); GLUCOSE 166 mg/dl (70-220); POTASSIUM 3.7 mmol/L (3.5-5.1); SODIUM 136 mmol/L (135-144)
[2018-06-27] MEDS ORDERED: HEPARIN 5,000 UNIT/0.5 ML VIAL ×2 (07:59→20:53)
[2018-06-27] MEDS: HEPARIN 5,000 UNIT/1 ML VIAL SC ×2 (08:26→21:19)
[2018-06-27] MEDS: INSULIN GLARGINE [LANTus] (100 UNITS/ML) SYG SC (08:27)
[2018-06-27] MEDS: INSULIN ASPART [NOVOLOG] 3 ML PEN SC ×7 (08:28→21:24)
[2018-06-27] MEDS: POLYETHYLENE GLYCOL 17 GM PACKET PO (08:29)
[2018-06-27] MEDS: TACROLIMUS 1 MG CAP PO ×2 (08:29→21:12)
[2018-06-27] MEDS: LUBIPROSTONE 24 MCG CAP PO ×2 (08:29→21:12)
[2018-06-27] MEDS: URSODIOL 300 MG CAP PO ×2 (08:30→21:12)
[2018-06-27] MEDS: MYCOPHENOLATE MOFETIL 500 MG TABLET PO ×2 (08:30→21:12)
[2018-06-27] MEDS: GABAPENTIN 100 MG CAP PO ×3 (08:30→21:12)
[2018-06-27] MEDS: hydrOXYzine HCL 25 MG TAB PO ×3 (08:30→21:12)
[2018-06-27 08:35] LABS: HAAIG REFLEX REFLEX FILED
[2018-06-27 09:12] LABS: HEPATITIS B SURFACE ANTIGEN NEGATIVE (NEGATIVE)
[2018-06-27 09:30] LABS: HEPATITIS B CORE ANTIBODY NEGATIVE (NEGATIVE); HEPATITIS C VIRAL ANTIBODY NEGATIVE (NEGATIVE)
[2018-06-27 11:41] LABS: VARICELLA-ZOSTER VIRUS AB IgG <135.00 INDEX (<= 0.90)
[2018-06-27] MEDS: morphine 2 MG INJ IV ×2 (17:50→21:48)
[2018-06-27] MEDS: MAGNESIUM PLUS PROTEIN PO ×2 (21:00→22:36)
[2018-06-27 23:27] LABS: VARICELLA-ZOSTER VIRUS AB IgM 0.61
[2018-06-28] MEDS: ACCU-CHEK XX (02:07)
[2018-06-28] MEDS: SOD CHLORIDE 0.9% IVPB ×3 (06:04→22:05)
[2018-06-28] MEDS: ACYCLOVIR IVPB ×3 (06:04→22:05)
[2018-06-28] MEDS: PANTOPRAZOLE (EC) 40 MG TAB PO (06:05)
[2018-06-28 06:43] LABS: ALANINE AMINOTRANSFERASE 108 IU/L (13-69); ALBUMIN 3.2 g/dl (3.3-4.9); ALKALINE PHOSPHATASE 136 IU/L (42-121); ASPARTATE AMINO TRANSFERASE 58 IU/L (15-46); BILIRUBIN,INDIRECT 0.3 mg/dl (0-1.1); BILIRUBIN,TOTAL 0.3 mg/dl (0.2-1.3); TOTAL PROTEIN 5.6 g/dl (6.1-8.1)
[2018-06-28] MEDS ORDERED: HEPARIN 5,000 UNIT/0.5 ML VIAL ×3 (08:10→20:29)
[2018-06-28] MEDS: GABAPENTIN 100 MG CAP PO ×3 (08:13→20:35)
[2018-06-28] MEDS: LUBIPROSTONE 24 MCG CAP PO ×2 (08:13→20:36)
[2018-06-28] MEDS: MYCOPHENOLATE MOFETIL 500 MG TABLET PO ×2 (08:13→20:35)
[2018-06-28] MEDS: POLYETHYLENE GLYCOL 17 GM PACKET PO (08:13)
[2018-06-28] MEDS: URSODIOL 300 MG CAP PO ×2 (08:14→20:41)
[2018-06-28] MEDS: hydrOXYzine HCL 25 MG TAB PO ×3 (08:14→20:34)
[2018-06-28] MEDS: TACROLIMUS 1 MG CAP PO ×2 (08:14→20:35)
[2018-06-28] MEDS: INSULIN ASPART [NOVOLOG] 3 ML PEN SC ×7 (08:15→20:50)
[2018-06-28] MEDS: HEPARIN 5,000 UNIT/1 ML VIAL SC ×2 (08:17→20:40)
[2018-06-28] MEDS: INSULIN GLARGINE [LANTus] (100 UNITS/ML) SYG SC (08:22)
[2018-06-28] MEDS: ACETAMINOPHEN 325 MG TAB PO (12:58)
[2018-06-28] MEDS: MAGNESIUM PLUS PROTEIN PO (20:35)
[2018-06-28] MEDS: morphine 2 MG INJ IV (22:28)
[2018-06-29] MEDS: ACCU-CHEK XX (02:00)
[2018-06-29] MEDS: ACYCLOVIR IVPB ×3 (06:22→21:31)
[2018-06-29] MEDS: SOD CHLORIDE 0.9% IVPB ×3 (06:22→21:31)
[2018-06-29] MEDS: PANTOPRAZOLE (EC) 40 MG TAB PO (06:22)
[2018-06-29 06:36] LABS: ABNORMAL IP MESSAGE 1; HEMATOCRIT 41.1 % (42.0-52.0); HEMOGLOBIN 14.1 g/dl (14.0-18.0); MEAN CORPUSCULAR HEMOGLOBIN 28.8 pg (29.0-33.0); MEAN CORPUSCULAR HGB CONC 34.3 g/dl (32.0-37.0); MEAN CORPUSCULAR VOLUME 83.9 fl (82.0-101.0); PLATELET COUNT 252 10^3/UL (140-415); POSITIVE DIFF @See below
[2018-06-29 06:36] LABS: WHITE BLOOD COUNT 7.4 10^3/ul (4.8-10.8)
[2018-06-29 06:39] LABS: ADD MAN DIFF? YES
[2018-06-29 07:23] LABS: ANION GAP 12 (5-13); BLOOD UREA NITROGEN 9 mg/dl (7-20); CALCIUM 8.9 mg/dl (8.4-10.2); CARBON DIOXIDE 24 mmol/L (21-31); CHLORIDE 100 mmol/L (97-110); CREATININE 0.58 mg/dl (0.61-1.24); Estimated GFR > 60 mL/min (>60); GLUCOSE 195 mg/dl (70-220); SODIUM 136 mmol/L (135-144)
[2018-06-29 07:27] LABS: ANISOCYTOSIS 2+ (0-0); BAND NEUTROPHILS #M 0.6 10^3/ul (0.0-0.6); BAND NEUTROPHILS % (M) 9 % (0-4); BURR CELLS 1+ (0-0); EOSINOPHILS % (M) 5 % (0-7); LYMPHOCYTES #M 2.4 10^3/ul (0.8-2.9); LYMPHOCYTES % (M) 33 % (15-51); METAMYELOCYTES %M 1 % (0-0); MICROCYTOSIS 2+ (0-0); MONOCYTES % (M) 1 % (0-11); MYELOCYTES #M 0.2 10^3/ul (0.0-0.0); MYELOCYTES % (M) 3 % (0-0); PLATELET ESTIMATE NORMAL; POIKILOCYTOSIS 1+ (0-0); POLYCHROMASIA 1+ (0-0); REACTIVE LYMPHOCYTES #M 0.1 10^3/ul (0.0-0.0); REACTIVE LYMPHOCYTES% (M) 2 % (0-0); SEG NEUT #M 3.4 10^3/ul (1.6-7.5); SEGMENTED NEUTROPHILS (M) % 46 % (39-77); SMUDGE%M 12 % (0-0)
[2018-06-29] MEDS ORDERED: HEPARIN 5,000 UNIT/0.5 ML VIAL ×2 (07:47→20:47)
[2018-06-29] MEDS: INSULIN ASPART [NOVOLOG] 3 ML PEN SC ×7 (08:07→21:24)
[2018-06-29] MEDS: INSULIN GLARGINE [LANTus] (100 UNITS/ML) SYG SC (08:09)
[2018-06-29] MEDS: HEPARIN 5,000 UNIT/1 ML VIAL SC ×2 (08:10→21:21)
[2018-06-29] MEDS: URSODIOL 300 MG CAP PO ×2 (08:12→21:18)
[2018-06-29] MEDS: GABAPENTIN 100 MG CAP PO ×3 (08:12→21:18)
[2018-06-29] MEDS: MYCOPHENOLATE MOFETIL 500 MG TABLET PO ×2 (08:12→21:18)
[2018-06-29] MEDS: TACROLIMUS 1 MG CAP PO ×2 (08:12→21:18)
[2018-06-29] MEDS: POLYETHYLENE GLYCOL 17 GM PACKET PO (08:13)
[2018-06-29] MEDS: LUBIPROSTONE 24 MCG CAP PO ×2 (08:13→21:18)
[2018-06-29] MEDS: hydrOXYzine HCL 25 MG TAB PO ×3 (09:39→21:18)
[2018-06-29 11:42] LABS: PROCALCITONIN 0.32 ng/mL (<0.10)
[2018-06-29] MEDS: morphine 2 MG INJ IV ×2 (14:48→21:31)
[2018-06-29] MEDS: MAGNESIUM PLUS PROTEIN PO (21:18)
[2018-06-30] MEDS: ACCU-CHEK XX (02:00)
[2018-06-30] MEDS: ACYCLOVIR IVPB ×3 (05:21→22:04)
[2018-06-30] MEDS: SOD CHLORIDE 0.9% IVPB ×3 (05:21→22:04)
[2018-06-30] MEDS: PANTOPRAZOLE (EC) 40 MG TAB PO (05:21)
[2018-06-30] MEDS: morphine 2 MG INJ IV ×4 (05:21→20:42)
[2018-06-30 06:53] LABS: ALANINE AMINOTRANSFERASE 74 IU/L (13-69); ALBUMIN 3.5 g/dl (3.3-4.9); ALBUMIN/GLOBULIN RATIO 1.16; ALKALINE PHOSPHATASE 136 IU/L (42-121); ANION GAP 12 (5-13); ASPARTATE AMINO TRANSFERASE 48 IU/L (15-46); BILIRUBIN,INDIRECT 0.4 mg/dl (0-1.1); BILIRUBIN,TOTAL 0.4 mg/dl (0.2-1.3); BLOOD UREA NITROGEN 9 mg/dl (7-20); CARBON DIOXIDE 25 mmol/L (21-31); CHLORIDE 104 mmol/L (97-110); CREATININE 0.63 mg/dl (0.61-1.24); Estimated GFR > 60 mL/min (>60); GLUCOSE 206 mg/dl (70-220); POTASSIUM 4.2 mmol/L (3.5-5.1); SODIUM 141 mmol/L (135-144); TOTAL PROTEIN 6.5 g/dl (6.1-8.1)
[2018-06-30] MEDS ORDERED: HEPARIN 5,000 UNIT/0.5 ML VIAL ×2 (08:13→20:38)
[2018-06-30] MEDS: URSODIOL 300 MG CAP PO ×2 (08:52→22:04)
[2018-06-30] MEDS: HEPARIN 5,000 UNIT/1 ML VIAL SC ×2 (08:52→20:51)
[2018-06-30] MEDS: TACROLIMUS 1 MG CAP PO ×2 (08:52→20:49)
[2018-06-30] MEDS: LUBIPROSTONE 24 MCG CAP PO ×2 (08:52→20:49)
[2018-06-30] MEDS: GABAPENTIN 100 MG CAP PO ×3 (08:53→20:49)
[2018-06-30] MEDS: MYCOPHENOLATE MOFETIL 500 MG TABLET PO ×2 (08:54→20:49)
[2018-06-30] MEDS: hydrOXYzine HCL 25 MG TAB PO ×3 (08:54→20:49)
[2018-06-30] MEDS: INSULIN GLARGINE [LANTus] (100 UNITS/ML) SYG SC (08:55)
[2018-06-30] MEDS: INSULIN ASPART [NOVOLOG] 3 ML PEN SC ×7 (08:56→20:51)
[2018-06-30] MEDS: POLYETHYLENE GLYCOL 17 GM PACKET PO (09:00)
[2018-06-30] MEDS ORDERED: INSULIN DETEMIR [LEVEMIR] (100 UNITS/ML) SYG SC (10:30)
[2018-06-30] MEDS ORDERED: INSULIN ASPART [NOVOLOG] 3 ML PEN SC (13:00)
[2018-06-30] MEDS: MAGNESIUM PLUS PROTEIN PO (20:48)
[2018-07-01] MEDS: morphine 2 MG INJ IV ×3 (01:12→19:45)
[2018-07-01] MEDS: ACCU-CHEK XX ×2 (02:00→23:47)
[2018-07-01] MEDS: PANTOPRAZOLE (EC) 40 MG TAB PO (05:34)
[2018-07-01] MEDS: SOD CHLORIDE 0.9% IVPB ×3 (05:35→21:20)
[2018-07-01] MEDS: ACYCLOVIR IVPB ×3 (05:35→21:20)
[2018-07-01] MEDS ORDERED: HEPARIN 5,000 UNIT/0.5 ML VIAL ×2 (08:48→20:42)
[2018-07-01] MEDS: URSODIOL 300 MG CAP PO ×2 (08:56→21:19)
[2018-07-01] MEDS: hydrOXYzine HCL 25 MG TAB PO ×3 (08:56→21:19)
[2018-07-01] MEDS: TACROLIMUS 1 MG CAP PO ×2 (08:56→21:19)
[2018-07-01] MEDS: LUBIPROSTONE 24 MCG CAP PO ×2 (08:56→23:20)
[2018-07-01] MEDS: POLYETHYLENE GLYCOL 17 GM PACKET PO (08:56)
[2018-07-01] MEDS: GABAPENTIN 100 MG CAP PO ×3 (08:56→21:19)
[2018-07-01] MEDS: HEPARIN 5,000 UNIT/1 ML VIAL SC ×2 (08:57→21:17)
[2018-07-01] MEDS: INSULIN ASPART [NOVOLOG] 3 ML PEN SC ×7 (08:59→21:00)
[2018-07-01] MEDS: INSULIN GLARGINE [LANTus] (100 UNITS/ML) SYG SC (09:34)
[2018-07-01] MEDS: MYCOPHENOLATE MOFETIL 500 MG TABLET PO ×2 (09:40→21:19)
[2018-07-01] MEDS: MAGNESIUM PLUS PROTEIN PO (21:20)
[2018-07-01] MEDS: oxyCODONE 5 MG TAB PO (21:53)
[2018-07-02] MEDS: morphine 2 MG INJ IV (01:28)
[2018-07-02] MEDS: PANTOPRAZOLE (EC) 40 MG TAB PO (05:18)
[2018-07-02 07:38] LABS: CREATININE 0.61 mg/dl (0.61-1.24)
[2018-07-02 07:38] LABS: BLOOD UREA NITROGEN 8 mg/dl (7-20)
[2018-07-02] MEDS: INSULIN ASPART [NOVOLOG] 3 ML PEN SC ×6 (08:13→17:23)
[2018-07-02] MEDS ORDERED: HEPARIN 5,000 UNIT/0.5 ML VIAL (08:34)
[2018-07-02] MEDS: INSULIN GLARGINE [LANTus] (100 UNITS/ML) SYG SC (08:47)
[2018-07-02] MEDS: HEPARIN 5,000 UNIT/1 ML VIAL SC (08:48)
[2018-07-02] MEDS: MYCOPHENOLATE MOFETIL 500 MG TABLET PO (08:49)
[2018-07-02] MEDS: GABAPENTIN 100 MG CAP PO ×2 (08:49→12:53)
[2018-07-02] MEDS: URSODIOL 300 MG CAP PO (08:49)
[2018-07-02] MEDS: TACROLIMUS 1 MG CAP PO (08:49)
[2018-07-02] MEDS: VALACYCLOVIR 500 MG TAB PO ×2 (08:49→12:53)
[2018-07-02] MEDS: hydrOXYzine HCL 25 MG TAB PO ×2 (08:49→12:53)
[2018-07-02] MEDS: POLYETHYLENE GLYCOL 17 GM PACKET PO ×2 (08:50→09:00)
[2018-07-02] MEDS: LUBIPROSTONE 24 MCG CAP PO (08:50)
[2018-07-04 17:57] LABS: TACROLIMUS 6.8 mcg/L
== END 2018-07-02 18:59 | disposition home or self-care (01) | DRG 865 ==
LOC: PP2 06-24 05:35 → FTE 21:21 → 2NE 06-23 01:13
DX: B01.9 Varicella without complication (principal); E10.10 Type 1 diabetes mellitus with ketoacidosis without coma; Z94.4 Liver transplant status; Q60.0 Renal agenesis, unilateral; K75.4 Autoimmune hepatitis; E83.42 Hypomagnesemia; M54.5 Low back pain; K29.70 Gastritis, unspecified, without bleeding; L29.9 Pruritus, unspecified; R94.5 Abnormal results of liver function studies; K59.03 Drug induced constipation; T40.2X5A Adverse effect of other opioids, initial encounter; Y92.230 Patient room in hospital as the place of occurrence of the external cause; Z79.4 Long term (current) use of insulin
CPT/HCPCS: 36415; 70552; 71045; 71046; 72100; 76705; 76775; 80048; 80053; 80076; 80197; 81001; 81003; 82150; 82565; 82803; 82962; 83036; 83605; 83690; 83735; 84100; 84145; 84520; 84681; 85025; 86703; 86704; 86709; 86787; 86803; 87040; 87086; 87340; 87400; 87880; 96374; 99291-25